=== PATIENT | male | born 2000 | race Asian ===

== ENCOUNTER → 2018-01-16 | Outpatient (CLI) | payer BC ==
[2018-01-16 13:30] LABS: Basophils % (A) 1 %; Eosinophils # (A) 0.1 k/uL (0-0.7); Eosinophils % (A) 2 %; HCT 47.5 % (39.0-53.0); Lymphocytes # (A) 1.8 k/uL (1.0-4.8); Lymphocytes % (A) 26 %; MCHC 33.8 g/dL (31.0-37.0); MCV 83.1 fL (80.0-100.0); Mean Platelet Volume 7.4; Monocytes # (A) 0.5 k/uL (0-1.0); Monocytes % (A) 6 %; Neutrophils # (A) 4.5 k/uL (1.3-7.7); Neutrophils % (A) 64 %; Platelet Count 223 k/uL (150-450); RBC 5.72 m/uL (4.30-5.90); RDW 12.5 % (11.5-15.5); WBC 7.1 k/uL (4.0-11.0)
[2018-01-17 09:54] LABS: Hemoglobin A1C 5.6 % (4.0-6.0)
[2018-01-17 13:27] LABS: Albumin 4.7 g/dL (3.80-4.90); Albumin/Globulin Ratio 2.04 (1.20-2.10); Globulin 2.3 g/dL (2.1-3.7); Potassium 4.8 mmol/L (3.5-5.5); Total Bilirubin 0.7 mg/dL (0.3-1.2)
[2018-01-17 13:36] LABS: T4, Free (Free Thyroxine) 1.2 ng/dL (0.83-1.43)
== END | disposition home or self-care (01) ==
LOC: LABMAIN 12:10
PROVIDERS: ATTEND Psychiatry & Neurology Neurology
DX: R53.83 Other fatigue (principal); R53.81 Other malaise; E78.00 Pure hypercholesterolemia, unspecified; E55.9 Vitamin D deficiency, unspecified; R73.9 Hyperglycemia, unspecified
CPT/HCPCS: 36415; 80053; 80061; 82306; 83036; 84439; 84443; 85025

== ENCOUNTER 2021-08-11 00:36 | Emergency (ER) | payer BC ==
[2021-08-11] MEDS ORDERED: IBUPROFEN 600 MG TAB PO STA (01:10)
[2021-08-11] MEDS ORDERED: BEBTELOVIMAB (EUA) 175 MG/2 ML VIAL IV ONE (02:15)
--- NOTE | 2021-08-11 02:38 | ED ---
Fever HPI - General Chief Complaint: Fever Stated Complaint: fever, lethargic Source: patient, family Mode of arrival: ambulatory Limitations: no limitations - History of Present Illness Initial Comments: 21-year-old male presents emergency department with fever, sore throat and muscle aches. States that his symptoms just started today. He denies having any direct sick contacts. Admits to ear pain, scratchy throat, nonproductive cough. He denies chest pain or difficulty breathing. No abdominal pain. No nausea, vomiting or diarrhea. He is vaccinated against Covid and has had a booster. Patient did not take any Motrin or Tylenol for fever control prior to coming to the hospital. Patient denies any previous medical history. No other alleviating, precipitating or modifying factors - Related Data Previous Rx's Medication Instructions Recorded Nirmatrelvir/Ritonavir [Paxlovid 1 each PO BID #1 pack 08/11/21 2X150 mg-100 mg (Eua)] Lidocaine Viscous [Xylocaine 15 ml PO Q4H PRN #100 ml 08/14/21 Viscous 2%] Allergies Allergy/AdvReac Type Severity Reaction Status Date / Time No Known Allergies Allergy Verified 08/11/21 00:43 Review of Systems ROS Statement: Those systems with pertinent positive or pertinent negative responses have been documented in the HPI. ROS Other: All systems not noted in ROS Statement are negative. Past Medical History Past Medical History: No Reported History History of Any Multi-Drug Resistant Organisms: None Reported Past Surgical History: No Surgical Hx Reported Past Psychological History: No Psychological Hx Reported Smoking Status: Never smoker Past Alcohol Use History: None Reported Past Drug Use History: None Reported General Exam Limitations: no limitations General appearance: alert, in no apparent distress, obese Head exam: Present: atraumatic, normocephalic, normal inspection Eye exam: Present: normal appearance, PERRL, EOMI. Absent: scleral icterus, conjunctival injection, periorbital swelling ENT exam: Present: normal exam, mucous membranes moist, other (tonsils and uvula are absent) Neck exam: Present: normal inspection. Absent: tenderness, meningismus, lymphadenopathy Respiratory exam: Present: normal lung sounds bilaterally. Absent: respiratory distress, wheezes, rales, rhonchi, stridor Cardiovascular Exam: Present: regular rate, normal rhythm, normal heart sounds. Absent: systolic murmur, diastolic murmur, rubs, gallop, clicks GI/Abdominal exam: Present: soft, normal bowel sounds. Absent: distended, tenderness, guarding, rebound, rigid Extremities exam: Present: normal inspection, full ROM, normal capillary refill. Absent: tenderness, pedal edema, joint swelling, calf tenderness Back exam: Present: normal inspection Neurological exam: Present: alert, oriented X3, CN II-XII intact Psychiatric exam: Present: normal affect, normal mood Skin exam: Present: warm, dry, intact, normal color. Absent: rash Course Vital Signs 08/11/21 08/11/21 00:37 03:15 Temperature 99.7 F H 98.7 F Pulse Rate 86 79 Respiratory 18 20 Rate Blood Pressure 123/75 129/79 O2 Sat by Pulse 97 97 Oximetry Medical Decision Making - Medical Decision Making Upon arrival patient is placed into room 9. He is given Motrin for fever control. Patient is swabbed for Covid influenza as well as strep. Covid is positive. Chest x-ray is performed which shows no acute process. Patient is given antibody infusion. Family is additionally requesting prescription for Paxlovid. Symptoms controlled at this time. No signs of respiratory distress. Patient will be discharged home and instructed follow up with primary care doctor in 2-4 days return for any new or worsening symptoms per patient was discharged home in stable condition - Lab Data Lab Results 08/11/21 08/11/21 08/11/21 Range/Units 01:15 01:15 01:15 Coronavirus (PCR) Detected A (Not Detectd) Influenza Type A RNA Not Detected (Not Detectd) Influenza Type B (PCR) Not Detected (Not Detectd) Group A Strep Rapid Negative (Negative) Disposition Clinical Impression: Pyrexia, COVID-19, Pharyngitis Disposition: HOME SELF-CARE Condition: Stable Instructions (If sedation given, give patient instructions): Coronavirus Disease 2019 (COVID-19) Additional Instructions: Please alternates taking Motrin and Tylenol for fever and body aches. Follow-up with primary care doctor in 2-4 days and return for any new or worsening symptoms Prescriptions: Nirmatrelvir/Ritonavir [Paxlovid 2X150 mg-100 mg (Eua)] 1 each PO BID #1 pack Is patient prescribed a controlled substance at d/c from ED?: No Referrals: Braxton Lama MD [Primary Care Provider] - 1-2 days Time of Disposition: 02:38
--- NOTE | 2021-08-11 03:12 | XR ---
EXAM: XR Chest, 2 Views CLINICAL HISTORY: ITS.REASON XR Reason: Cough/pain TECHNIQUE: Frontal and lateral views of the chest. COMPARISON: No relevant prior studies available. FINDINGS: Lungs: Unremarkable. No infiltration, atelectasis or mass density. Pleural space: Unremarkable. No pneumothorax. No pleural fluid. Heart: Unremarkable. No cardiomegaly. Mediastinum: Unremarkable. Bones/joints: Unremarkable. No acute abnormalities. IMPRESSION: No evidence of acute or active process in the chest.
[2021-08-11 03:19] VITALS: BP 129/79; PULSE 79; RESP 20; TEMP 98.7
== END 2021-08-11 03:19 | disposition home or self-care (01) ==
LOC: EC 00:36
DX: U07.1 COVID-19 (principal); J02.8 Acute pharyngitis due to other specified organisms; E66.9 Obesity, unspecified; Z68.30 Body mass index [BMI] 30.0-30.9, adult
CPT/HCPCS: 87081; 87430; 87502; 87635; 71046; 99283; Q0222

== ENCOUNTER 2021-08-14 06:18 | Emergency (ER) | payer BC ==
[2021-08-14 06:28] VITALS: BP 123/83; PULSE 83; RESP 18; TEMP 98
[2021-08-14] MEDS ORDERED: IBUPROFEN 800 MG TAB PO STA (06:57)
[2021-08-14] MEDS ORDERED: guaiFENesin 600 MG TABLET.ER PO PRN (06:57)
--- NOTE | 2021-08-14 07:02 | ED ---
General Adult HPI - General Chief complaint: ENT Stated complaint: Covid+, sore throat Time Seen by Provider: 08/14/21 06:50 Source: patient, family, RN notes reviewed, old records reviewed Mode of arrival: ambulatory Limitations: no limitations - History of Present Illness Initial comments: Well-appearing 21-year-old male presents to the emergency room with his father complaining of sore throat, increased mucus, left ear pain and difficulty sleeping. He was diagnosed with coronavirus on August 11 and received monoclonal antibodies infusion here. He did take Tylenol prior to arrival. -: days(s) (3) Severity scale (1-10): 8 Quality: constant Consistency: constant Improves with: none Associated Symptoms: other (left ear pain) Treatments Prior to Arrival: other (tylenol ) - Related Data Previous Rx's Medication Instructions Recorded Nirmatrelvir/Ritonavir [Paxlovid 1 each PO BID #1 pack 08/11/21 2X150 mg-100 mg (Eua)] Lidocaine Viscous [Xylocaine 15 ml PO Q4H PRN #100 ml 08/14/21 Viscous 2%] Allergies Allergy/AdvReac Type Severity Reaction Status Date / Time No Known Allergies Allergy Verified 08/11/21 00:43 Review of Systems ROS Statement: Those systems with pertinent positive or pertinent negative responses have been documented in the HPI. ROS Other: All systems not noted in ROS Statement are negative. Past Medical History Past Medical History: No Reported History History of Any Multi-Drug Resistant Organisms: None Reported Past Surgical History: No Surgical Hx Reported Past Psychological History: No Psychological Hx Reported Smoking Status: Never smoker Past Alcohol Use History: None Reported Past Drug Use History: None Reported General Exam Limitations: no limitations General appearance: alert Head exam: Present: atraumatic Eye exam: Present: normal appearance. Absent: scleral icterus, conjunctival injection, periorbital swelling ENT exam: Present: mucous membranes moist, TM's normal bilaterally, normal external ear exam Expanded Mouth exam: Present: tongue normal, tongue elevation. Absent: drooling, trismus, muffled voice Throat exam: other (Erythematous oropharynx). negative: tonsillar exudate, R peritonsillar mass, L peritonsillar mass Neck exam: Present: normal inspection, full ROM. Absent: tenderness, meningismus, lymphadenopathy Respiratory exam: Present: normal lung sounds bilaterally. Absent: respiratory distress, accessory muscle use Cardiovascular Exam: Present: regular rate Extremities exam: Present: normal capillary refill Back exam: Present: normal inspection. Absent: tenderness, CVA tenderness (R), CVA tenderness (L), rash noted Neurological exam: Present: alert, oriented X3 Psychiatric exam: Present: normal affect, normal mood Skin exam: Present: warm, dry, normal color. Absent: cyanosis, diaphoretic, petechiae, pallor Course Vital Signs 08/14/21 06:20 Temperature 98 F Pulse Rate 83 Respiratory 18 Rate Blood Pressure 123/83 O2 Sat by Pulse 98 Oximetry Medical Decision Making - Medical Decision Making Patient presents with sore throat, increased mucous production and difficulty sleeping after diagnosis of Covid 3 days ago. Patient and father requesting another throat swab which was performed and negative for strep. I explained to the patient at length that this viral illness may take a several days to recover from. He was given monoclonal antibodies at his previous ER visit. Patient is in no acute distress. Tympanic membranes are clear, oropharynx is erythematous, lung sounds are clear to auscultation oxygen saturation is 98% on room air. Family at bedside states they spoke with Dr. Griggs regarding care, requesting a medicated gargle for his sore throat. He was given a dose of Decadron and Mucinex in the emergency room in addition to a Maalox / viscous lidocaine cocktail. He was given a prescription for lidocaine and was directed to use 1 tablespoon swish and gargle every 4 hours while awake but not to swallow. He was also directed to increase his fluid intake and use Mucinex. Follow up with his primary care doctor next week and return to the emergency room with any new or concerning symptoms. Patient is agreeable to this plan of care. Case was discussed with Dr. Kinsey. - Lab Data Lab Results 08/14/21 Range/Units 07:16 Group A Strep Rapid Negative (Negative) Disposition Clinical Impression: COVID-19, Pharyngitis Disposition: HOME SELF-CARE Condition: Good Instructions (If sedation given, give patient instructions): Coronavirus Disease 2019 (COVID-19), Pharyngitis (ED) Prescriptions: Lidocaine Viscous [Xylocaine Viscous 2%] 15 ml PO Q4H PRN #100 ml PRN Reason: Pain Is patient prescribed a controlled substance at d/c from ED?: No Referrals: Braxton Lama MD [Primary Care Provider] - 1-2 days Time of Disposition: 08:05
[2021-08-14] MEDS ORDERED: dexAMETHasone 2 MG TAB PO STA (07:28)
[2021-08-14] MEDS ORDERED: LIDOCAINE VISCOUS 2% 15 ML CUP MUCOUS MEM ONE (07:28)
[2021-08-14] MEDS ORDERED: MAG HYDROX/AL HYDROX/SIMETH 30 ML CUP PO STA (07:29)
== END 2021-08-14 08:11 | disposition home or self-care (01) ==
LOC: EC 06:18
DX: U07.1 COVID-19 (principal); J02.9 Acute pharyngitis, unspecified
CPT/HCPCS: 87081; 87430; 99283; J8540

== ENCOUNTER 2024-06-29 21:37 | Emergency (ER) | payer BC ==
[2024-06-29 21:41] VITALS: TEMP 98.5
--- NOTE | 2024-06-29 22:00 | ED ---
General Adult HPI - General Chief complaint: Abdominal Pain Stated complaint: Abdominal Pain, Bloating Time Seen by Provider: 06/29/24 21:51 Source: patient, RN notes reviewed Mode of arrival: ambulatory Limitations: no limitations - History of Present Illness Initial comments: This is a 24-year-old male with history of constipation presenting with family for constant upper abdominal pain x 3 days. Patient describes pain as aching, bloating and would later mention burning sensation. Patient states he feels he has increased gas in his abdomen, stating he "feels constipated" patient states pain radiates to his bilateral flanks. Patient mentions having diarrhea 1.5 hours prior to interview appearing darker than usual but denying any obvious blood in toilet. Denies history of GERD, PUD, gastritis. Denies fever, chills, dizziness, chest pain, dyspnea, nausea/vomiting. Onset/Timin -: days(s) Location: abdomen Radiation: flank Severity scale (1-10): 5 Quality: burning, aching Consistency: constant Associated Symptoms: other (Diarrhea) - Related Data Previous Rx's Medication Instructions Recorded Nirmatrelvir/Ritonavir [Paxlovid 1 each PO BID #1 pack 08/11/21 2X150 mg-100 mg (Eua)] Lidocaine Viscous [Xylocaine 15 ml PO Q4H PRN #100 ml 08/14/21 Viscous 2%] Famotidine [Pepcid] 20 mg PO BID #28 tablet 06/30/24 Omeprazole [PriLOSEC] 20 mg PO AC-BRKFST #14 cap 06/30/24 Allergies Allergy/AdvReac Type Severity Reaction Status Date / Time No Known Allergies Allergy Verified 06/29/24 21:41 Review of Systems ROS Statement: Those systems with pertinent positive or pertinent negative responses have been documented in the HPI. ROS Other: All systems not noted in ROS Statement are negative. Past Medical History Past Medical History: No Reported History History of Any Multi-Drug Resistant Organisms: None Reported Past Surgical History: No Surgical Hx Reported Past Psychological History: No Psychological Hx Reported Smoking Status: Never smoker Past Alcohol Use History: None Reported Past Drug Use History: None Reported General Exam Limitations: no limitations General appearance: alert, in no apparent distress Head exam: Present: atraumatic, normocephalic, normal inspection Eye exam: Present: normal appearance, PERRL, EOMI. Absent: scleral icterus, conjunctival injection, periorbital swelling ENT exam: Present: normal exam, mucous membranes moist Neck exam: Present: normal inspection. Absent: tenderness, meningismus, lymphadenopathy Respiratory exam: Present: normal lung sounds bilaterally. Absent: respiratory distress, wheezes, rales, rhonchi, stridor Cardiovascular Exam: Present: regular rate, normal rhythm, normal heart sounds. Absent: systolic murmur, diastolic murmur, rubs, gallop, clicks GI/Abdominal exam: Present: soft, tenderness (Patient notes minor epigastric tenderness without guarding. Negative tympanic tenderness), normal bowel sounds. Absent: distended, guarding, rebound, rigid, mass, hernia Rectal exam: Present: normal inspection, normal rectal tone. Absent: black stool, bloody stool, fecal impaction, hemorrhoids, tenderness Extremities exam: Present: normal inspection, full ROM, normal capillary refill. Absent: tenderness, pedal edema, joint swelling, calf tenderness Back exam: Present: normal inspection Neurological exam: Present: alert, oriented X3, CN II-XII intact Psychiatric exam: Present: normal affect, normal mood Skin exam: Present: warm, dry, intact, normal color. Absent: rash Course Vital Signs 06/29/24 06/29/24 21:39 23:41 Temperature 98.5 F Pulse Rate 91 89 Respiratory 16 18 Rate Blood Pressure 123/83 124/80 O2 Sat by Pulse 97 99 Oximetry Medical Decision Making - Medical Decision Making Was pt. sent in by a medical professional or institution (, PA, FLAT GRINDER OPERATOR, urgent care, hospital, or long-term...) When possible be specific @ -No Did you speak to anyone other than the patient for history (EMS, parent, family, police, friend...)? What history was obtained from this source @ -No Did you review nursing and triage notes (agree or disagree)? Why? @ -I reviewed and agree with nursing and triage notes Were old charts reviewed (outside hosp., previous admission, EMS record, old EKG, old radiological studies, urgent care reports/EKG's, long-term records)? Report findings @ -No old charts were reviewed Differential Diagnosis (chest pain, altered mental status, abdominal pain women, abdominal pain men, vaginal bleeding, weakness, fever, dyspnea, syncope, headache, dizziness, GI bleed, back pain, seizure, CVA, palpatations, mental health, musculoskeletal)? @ -Differential Abdominal Pain Men: Appendicitis, cholecystitis, diverticulosis, ischemic bowel, pancreatitis, hepatitis, UTI, gastroenteritis, AAA, incarcerated hernia, bowel obstruction, constipation, inflammatory bowel, hepatitis, peptic ulcer disease, splenic infarction, perforated viscus, testicular torsion, this is not meant to be an all-inclusive list EKG interpreted by me (3pts min.). @ -Not done X-rays interpreted by me (1pt min.). @ -KUB shows air present in transverse colon with scattered colonic air-fluid levels but no differential air-fluid levels, indicating nonspecific abdomen. CT interpreted by me (1pt min.). @ -None done U/S interpreted by me (1pt. min.). @ -None done What testing was considered but not performed or refused? (CT, X-rays, U/S, labs)? Why? @ -None What meds were considered but not given or refused? Why? @ -None Did you discuss the management of the patient with other professionals (professionals i.e. , PA, FLAT GRINDER OPERATOR, lab, RT, psych nurse, social security specialist, windchill administrator, teacher, development officer, showcase trimmer)? Give summary @ -No Was smoking cessation discussed for >3mins.? @ -No Was critical care preformed (if so, how long)? @ -No Were there social determinants of health that impacted care today? How? (Homelessness, low income, unemployed, alcoholism, drug addiction, transportation, low edu. Level, literacy, decrease access to med. care, [facility], rehab)? @ -No Was there de-escalation of care discussed even if they declined (Discuss DNR or withdrawal of care, Hospice)? DNR status @ -No What co-morbidities impacted this encounter? (DM, HTN, Smoking, COPD, CAD, Cancer, CVA, ARF, Chemo, Hep., AIDS, mental health diagnosis, sleep apnea, morbid obesity)? @ -None Was patient admitted / discharged? Hospital course, mention meds given and route, prescriptions, significant lab abnormalities, going to OR and other pertinent info. @ -Based upon patient's HPI and concern for constipation, patient provided p.o. magnesium citrate and KUB obtained, showing no acute findings. Occult blood was negative. Patient notes improvement in epigastric pain following p.o. Pepcid, simethicone and viscous lidocaine. Advised brat diet and increase oral fluid intake. Recommended follow-up with gastroenterology for any ongoing worsening symptoms. Discussed patient with Dr. Saravia. Undiagnosed new problem with uncertain prognosis? @ -No Drug Therapy requiring intensive monitoring for toxicity (Heparin, Nitro, Insulin, Cardizem)? @ -No Were any procedures done? @ -No Diagnosis/symptom? @ -Gastritis, abdominal colic Acute, or Chronic, or Acute on Chronic? @ -Acute Uncomplicated (without systemic symptoms) or Complicated (systemic symptoms)? @ -Uncomplicated Side effects of treatment? @ -No Exacerbation, Progression, or Severe Exacerbation? @ -No Poses a threat to life or bodily function? How? (Chest pain, [place], [place], pneumonia, PE, COPD, DKA, ARF, appy, cholecystitis, CVA, Diverticulitis, Homicidal, Suicidal, threat to staff... and all critical care pts) @ -No - Lab Data Lab Results 06/29/24 Range/Units 23:15 Stool Occult Blood Negative (Negative) Disposition Clinical Impression: Abdominal colic, Gastritis Disposition: HOME SELF-CARE Condition: Good Instructions (If sedation given, give patient instructions): Acute Diarrhea (ED), Abdominal Pain (ED), Gastritis (ED) Additional Instructions: Bananas, rice, applesauce, tea, toast. Increase oral rehydration of water and Gatorade/Pedialyte. Follow-up with gastroenterology for any ongoing or worsening symptoms. Prescriptions: Famotidine [Pepcid] 20 mg PO BID #28 tablet Omeprazole [PriLOSEC] 20 mg PO AC-BRKFST #14 cap Is patient prescribed a controlled substance at d/c from ED?: No Referrals: None,Stated [Primary Care Provider] - 1-2 days Tracy Danielle MD [STAFF PHYSICIAN] - 1-2 days Malachi Gr MD [STAFF PHYSICIAN] - 1-2 days Time of Disposition: 23:55
[2024-06-29] MEDS: MAGNESIUM CITRATE 296 ML BOTTLE PO ONE (22:24)
--- NOTE | 2024-06-29 23:39 | XR ---
EXAMINATION TYPE: XR KUB DATE OF EXAM: 06/29/2024 10:11 PM COMPARISON: None. CLINICAL INDICATION: Male, 24 years old with history of Bloating, constipation, TECHNIQUE: XR KUB view(s) obtained. FINDINGS: Air is present within the transverse colon. Few scattered colonic air-fluid levels are present. No di fferential air-fluid levels are present. Psoas margins are normal. No organomegaly is present. IMPRESSION: 1. Nonspecific abdomen. Consider gastroenteritis. [facility], Workstation: [facility], 06/29/2024 11:37 PM
[2024-06-29] MEDS: FAMOTIDINE 20 MG TAB PO STA (23:42)
[2024-06-29] MEDS: SIMETHICONE 80 MG CHEWABLE PO STA (23:42)
[2024-06-29] MEDS: LIDOCAINE VISCOUS 2% 15 ML CUP PO ONE (23:44)
[2024-06-29 23:50] VITALS: BP 124/80; PULSE 89; RESP 18
== END 2024-06-30 00:26 | disposition home or self-care (01) ==
LOC: EC 21:37
DX: K29.70 Gastritis, unspecified, without bleeding (principal)
CPT/HCPCS: 36415; 74018; 82272; 99284